=== PATIENT | male | born 1965 | race Caucasian/White ===

== ENCOUNTER → 2018-01-08 | Day surgery (SDC) | payer OTHER ==
[~2018-01-08] VITALS: Ht 187.9 cm; Wt 77.1 kg
[~2018-01-08] MED LIST: KEFLEX500 MG PO; OMEPRAZOLE40 MG PO; PULMICORT0.2 MG/ACT INH
[2018-01-08 08:35] VITALS: BP 139/72
[2018-01-08 09:27] VITALS: BP 97/49
[2018-01-08 09:42] VITALS: BP 96/50
[2018-01-08 09:57] VITALS: BP 117/70
== END | disposition home or self-care (01) ==
LOC: SDC 01-03 09:30
DX: Z12.11 Encounter for screening for malignant neoplasm of colon (principal); K29.50 Unspecified chronic gastritis without bleeding; B96.81 Helicobacter pylori [H. pylori] as the cause of diseases classified elsewhere; K31.89 Other diseases of stomach and duodenum; K21.9 Gastro-esophageal reflux disease without esophagitis; J44.9 Chronic obstructive pulmonary disease, unspecified; E78.49 Other hyperlipidemia; Z83.3 Family history of diabetes mellitus; Z98.890 Other specified postprocedural states; Z79.899 Other long term (current) drug therapy

== ENCOUNTER → 2018-01-22 | Outpatient (CLI) | payer OTHER | END | disposition home or self-care (01) | LOC: US 11:00 | DX: I65.21 Occlusion and stenosis of right carotid artery (principal); R41.3 Other amnesia; E78.5 Hyperlipidemia, unspecified; R13.19 Other dysphagia ==